=== PATIENT | female | born 1955 | race Caucasian/White ===

== ENCOUNTER → 2017-11-30 | Outpatient (CLI) | payer BC ==
[~2017-11-30] MED LIST: REGADENOSON 0.4 MG/5 ML DISP.SYRIN. IV
== END | disposition home or self-care (01) ==
LOC: PCVCIMAG 08:25
DX: I48.92 Unspecified atrial flutter (principal); R06.09 Other forms of dyspnea; E78.5 Hyperlipidemia, unspecified; F17.200 Nicotine dependence, unspecified, uncomplicated; E11.9 Type 2 diabetes mellitus without complications; R51 Headache; R42 Dizziness and giddiness; R53.83 Other fatigue
CPT/HCPCS: 78452; 93017; A9500; J2785

== ENCOUNTER → 2018-09-14 | Outpatient (CLI) | payer MEDICARE, OTHER | END | disposition home or self-care (01) | LOC: PCVCCLINIC 11:00 | PROVIDERS: ATTEND Internal Medicine Cardiovascular Disease | DX: I25.10 Atherosclerotic heart disease of native coronary artery without angina pectoris (principal); I48.92 Unspecified atrial flutter; E78.00 Pure hypercholesterolemia, unspecified; Z72.0 Tobacco use; E11.9 Type 2 diabetes mellitus without complications | CPT/HCPCS: 93005; G0463 ==